=== PATIENT | female | born 1975 | race Caucasian/White ===

== ENCOUNTER 2017-03-03 11:18 | Emergency (ER) | payer BC, OTHER ==
[2017-03-03] MEDS ORDERED: Oxymetazoline 0.05% Nasal Spray 15 ML Bottle NAS ONE (13:32)
[2017-03-03] MEDS ORDERED: Lidocaine 1% with EPINEPHrine 1:100,000 30 ML MDV INJECT ONE (13:35)
--- NOTE | 2017-03-03 13:40 | EDM.PDOC ---
ED HPI GENERAL MEDICAL PROBLEM - General Chief Complaint: ENT Problem Stated Complaint: [id number] NOSE WONT STOP BLEEDING Time Seen by Provider: 03/03/17 13:22 Source of Information: Reports: Patient, RN, RN Notes Reviewed History Limitations: Reports: No Limitations - History of Present Illness INITIAL COMMENTS - FREE TEXT/NARRATIVE: Patient had nose bleed which first began at 0800. It stopped for an hour and 10 minutes. Patient had low platelets on 02/01. She had been given Remicade for Crohn's. No recent cough or URI. No shortness of breath, chest pain,nausea and vomiting.She has had diarrhea (Crohn's). Onset Date: 03/02/17 Location: Reports: Head (nose) Quality: Reports: Ache Severity: Mild Improves with: Reports: None Worsens with: Reports: None Associated Symptoms: Reports: No Other Symptoms - Related Data Allergies Allergy/AdvReac Type Severity Reaction Status Date / Time sulfacetamide Allergy Cannot Verified 03/03/17 12:36 Remember Home Meds: Home Meds Calcium Carbonate [Calcium] 500 mg PO ASDIRECTED 03/03/17 [History] Cyanocobalamin (Vitamin B-12) [B-12] 1,000 mcg PO ASDIRECTED 03/03/17 [History] InFLIXimab [Remicade] 100 mg IV ASDIRECTED 03/03/17 [History] Past Medical History Gastrointestinal History: Reports: Other (See Below) (Crohn's) Other Gastrointestinal History: chrones Hematologic History: Reports: Anemia, Other (See Below) (low platelets) Social & Family History - Family History Family Medical History: Noncontributory - Tobacco Use Smoking Status *Q: Never Smoker Second Hand Smoke Exposure: No - Caffeine Use Caffeine Use: Reports: Coffee - Recreational Drug Use Recreational Drug Use: No ED ROS ENT - Review of Systems Review Of Systems: ROS reveals no pertinent complaints other than HPI. ED EXAM, ENT - Physical Exam Exam: See Below Exam Limited By: No Limitations General Appearance: Alert, WD/WN, No Apparent Distress Eye Exam: Bilateral Eye: Normal Inspection Ears: Normal External Exam, Normal Canal, Hearing Grossly Normal, Normal TMs Nose: Other (nare/turbinateserythematous.) Mouth/Throat: Normal Inspection, Normal Gums, Normal Lips, Normal Oropharynx, Normal Teeth Head: Atraumatic, Normocephalic Neck: Normal Inspection, Supple, Non-Tender, Full Range of Motion Respiratory/Chest: No Respiratory Distress, Lungs Clear, Normal Breath Sounds, No Accessory Muscle Use, Chest Non-Tender Cardiovascular: Normal Peripheral Pulses, Regular Rate, Rhythm, No Edema, No Gallop, No JVD, No Murmur, No Rub GI/Abdominal: Normal Bowel Sounds, Soft, Non-Tender, No Organomegaly, No Distention, No Abnormal Bruit, No Mass (Female) Exam: Deferred Rectal (Female) Exam: Deferred Back: Normal Inspection, Full Range of Motion Extremities: Normal Inspection, Normal Range of Motion, Non-Tender, No Pedal Edema, Normal Capillary Refill Neurological: Alert, Oriented, CN II-XII Intact, Normal Cognition, Normal Gait, Normal Reflexes, No Motor/Sensory Deficits Psychiatric: Normal Affect, Normal Mood Skin: Warm, Dry, Intact, Normal Color, No Rash Lymphatic: No Adenopathy Course - Vital Signs Last Recorded V/S: Last Vital Signs Temp 98.5 F 03/03/17 13:49 Pulse 82 03/03/17 13:49 Resp 18 03/03/17 13:49 BP 117/88 03/03/17 13:49 Pulse Ox 97 03/03/17 13:49 - Orders/Labs/Meds Meds: Medications Discontinued Medications Generic Name Dose Route Start Last Admin Trade Name Machelle PRN Reason Stop Dose Admin Lidocaine/Epinephrine 30 ml 03/03/17 13:35 03/03/17 14:34 Xylocaine 1% With Epinephrine 1:100,000 INJECT 03/03/17 13:36 30 ml ONETIME ONE Administration Lidocaine/Epinephrine Confirm 03/03/17 13:45 03/03/17 14:33 Xylocaine 1% With Epinephrine 1:100,000 Administered 03/03/17 13:46 Not Given Dose 20 ml .ROUTE .STK-MED ONE Oxymetazoline HCl 1 ml 03/03/17 13:32 03/03/17 14:34 Afrin Original 0.05% Nasal [place] ALEX 03/03/17 13:33 1 ml ONETIME ONE Administration Departure - Departure Time of Disposition: 13:39 Disposition: Home, Self-Care 01 Condition: Good Clinical Impression: Epistaxis - Discharge Information Instructions: Nosebleed, [id number] Referrals: Sandie Harrison MD [Primary Care Provider] - Forms: ED Department Discharge Additional Instructions: Afrin Nasal spray with Lidocaine. Use one spray to the bleeding nostril as needed up to 4 times. If you need to use more than 4 times come to the ER. Use a humidifier at home. Vaseline in the nostrils for moisture. Follow up with your primary care facility as necessary.
[2017-03-03] MEDS ORDERED: Lidocaine 1% with EPINEPHrine 1:100,000 20 ML MDV ONE (13:45)
== END 2017-03-03 13:57 | disposition home or self-care (01) ==
LOC: DL.ED 11:18
DX: R04.0 Epistaxis (principal); Z88.2 Allergy status to sulfonamides
CPT/HCPCS: 99282; A9270